=== PATIENT | female | born 1995 | race African-American/Black ===

== ENCOUNTER 2019-07-08 15:43 | Emergency (ER) | payer MEDICAID ==
[~2019-07-08] VITALS: Ht 172.7 cm; Wt 64.0 kg
[2019-07-08] MEDS ORDERED: DEXAMETHASONE 10 MG/ML VIAL IM ONE (18:15)
[2019-07-08] MEDS ORDERED: KETOROLAC 60MG/2ML VIAL IM ONE (18:45)
[2019-07-08 19:18] VITALS: BP 112/69
== END 2019-07-08 19:19 | disposition home or self-care (01) ==
LOC: ER 15:43
DX: J02.9 Acute pharyngitis, unspecified (principal); F17.290 Nicotine dependence, other tobacco product, uncomplicated
CPT/HCPCS: 87070; 87430; 96372; 99283; J1100; Z7610

== ENCOUNTER 2019-09-08 10:58 | Emergency (ER) | payer MEDICAID, OTHER ==
[~2019-09-08] VITALS: Ht 177.8 cm; Wt 61.0 kg
[2019-09-08] MEDS ORDERED: HYDROCODONE/ACETAMINOPHEN 5/325MG TABLET PO ONE (12:30)
[2019-09-08 12:42] VITALS: BP 114/81
== END 2019-09-08 12:50 | disposition home or self-care (01) ==
LOC: ER 10:58
DX: J02.9 Acute pharyngitis, unspecified (principal); J01.90 Acute sinusitis, unspecified; I10 Essential (primary) hypertension
CPT/HCPCS: 81025; 99283

== ENCOUNTER 2019-09-29 15:15 | Emergency (ER) | payer SELFPAY ==
[~2019-09-29] VITALS: Ht 175.3 cm; Wt 77.7 kg
[2019-09-29 15:34] VITALS: BP 110/64
== END 2019-09-29 22:02 | disposition left against medical advice (07) ==
LOC: ER 15:15
DX: Z53.21 Procedure and treatment not carried out due to patient leaving prior to being seen by health care provider (principal)